=== PATIENT | male | born 1995 | race Caucasian/White ===

== ENCOUNTER 2020-08-28 00:46 | Emergency (ER) | payer OTHER, SELFPAY ==
[2020-08-28 00:48] VITALS: BP 131/80; PULSE 61; RESP 12; TEMP 36.8; O2SAT 99; BMI 19.5
--- NOTE | 2020-08-28 00:57 | EKG12_ITS ---
Test Reason : CP Blood Pressure : / mmHG Vent. Rate : 062 BPM Atrial Rate : 062 BPM P-R Int : 162 ms QRS Dur : 102 ms QT Int : 438 ms P-R-T Axes : 074 064 055 degrees QTc Int : 444 ms Normal sinus rhythm Nonspecific T wave abnormality Abnormal ECG Confirmed by KIMMY PENA, STEPHEN ([id number]), video tape editor CLARENCE MCCAULEY ([id number]) on 08/31/2020 10:25:22 AM Referred By: HORACIO Confirmed By:STEPHEN ONEAL MD
[2020-08-28 01:08] LABS: Absolute Lymphocyte Count 2.19 X10^3/uL (0.83-4.51); Absolute Neutrophil Count 6.6 X10^3/uL (2.0-7.7); Basophil# 0.04 X10^3/uL; Basophil% 0.4 % (0-1); Hematocrit 45.4 % (40-54); Hemoglobin 15.3 g/dL (13.0-16.5); Lymphocyte # 2.19 X10^3/ul (0.83-4.51); Lymphocyte % 22.8 % (19-41); Mean Corp Hgb Conc 33.7 g/dL (32-36); Mean Corpuscular Hgb 29.7 pg (27.0-32.0); Mean Platelet Vol. 10.7 fl (6.2-12.0); Monocyte% 6.3 % (0-10); NRBC Flagged by Analyzer 0 % (0-5); Neutrophil # 6.63 X10^3/uL (2.7-7.7); Neutrophil % 69.2 % (47-70); Platelet Count 127 K/mm3 (150-450); RBC Distribution Width SD 39.3 fl (35.1-43.9); Red Blood Count 5.16 M/mm3 (4.6-6.2); White Blood Count 9.6 K/mm3 (4.4-11.0)
--- NOTE | 2020-08-28 01:12 | RAD_ITS ---
STUDY: X-RAY CHEST REASON FOR EXAM: Male, 24 years old. chest pain TECHNIQUE: Single AP portable view of the chest. COMPARISON: None. FINDINGS: The lungs are clear and expanded. There is no demonstrated pleural abnormality. Normal size heart. Normal mediastinum and ronald. Normal visualized pulmonary arteries. Normal visualized aortic arch and descending thoracic aorta. Normal visualized thoracic spine. Normal visualized ribs, clavicles, and shoulders. There is no demonstrated abnormality of the visualized soft tissue structures of the upper abdomen. RAD/Chest 1 View (Portable) IMPRESSION: Normal x-ray examination of the chest. Electronically Signed: Francesco Baron DO at 1:30 EDT Tel , Service support ,
--- NOTE | 2020-08-28 01:16 | ED.VIS.CHEST ---
HPI History of Present Illness Chief Complaint: Chest Pain Narrative Narrative: 24-year-old male presenting with chest pain. States that his left lower chest wall. Earlier at about 830 yesterday evening he started to have the pain which felt like it was all over his chest. Patient currently only has left lower chest wall pain. He states he had shortness of breath issues for the last 6 months. He states that the chest pain issue has been for the last 6 years. He distantly saw physicians for this but his father states that he has not established with a physician locally. His father and he state that he did go to [place] about 3 weeks ago to a specialist named Dr. Montenegro. They do not know his specialty. They state that he checked him out with an EKG and blood work and stated that he had an enlarged heart. There was no chest x-ray or echocardiogram done. Patient denies fever or chills. He denies change in taste or smell. He denies leg swelling or leg pains. He does state that he had nausea and vomiting today. Patient did state that he was diagnosed with Gilbert syndrome from Dr. Montenegro 3 weeks ago. He has a history of elevated LFTs but this was his first diagnosis of this. [facility] Medical History Enlarged heart Gilbert syndrome Home Medications NK 08/28/20 [History Last Taken Unknown] Allergy/AdvReac Type Severity Reaction Status Date / Time No Known Allergies Allergy Verified 08/28/20 00:47 Surgical History Hx of appendectomy Social History Smoking Status: Never smoker ROS ROS ED Constitutional Constitutional ED: Denies chills or fever(s) Eyes Eyes: Denies blurry vision or change in vision ENT ENT ED: Denies rhinorrhea or sore throat Cardiovascular Cardiovascular: Reports chest pain and racing heartbeat Respiratory/Chest Respiratory/Chest: Reports dyspnea; Denies cough or sputum Gastrointestinal Gastrointestinal: Reports nausea and vomiting; Denies abdominal pain Genitourinary Genitourinary ED: Denies dysuria or hematuria Musculoskeletal Musculoskeletal: Denies arthralgias or myalgias Integumentary Denies abscess or rash Neurologic Neurologic: Denies headache(s) or paresthesias Psychiatric Psychiatric: Denies anxiety or depression EXAM Physical Exam Const Vital Signs: 08/28/20 00:48 08/28/20 00:52 08/28/20 00:59 Temperature 98.3 F Temperature Source Oral Pulse Rate 61 Respiratory Rate 12 Respiratory Effort Normal Respiratory Pattern Normal Blood Pressure 131/80 H Blood Pressure Mean 97 Pulse Ox 99 Oxygen Delivery Method Room Air Room Air 08/28/20 01:56 08/28/20 02:49 Temperature Temperature Source Pulse Rate 68 62 Respiratory Rate 12 10 L Respiratory Effort Respiratory Pattern Blood Pressure 133/80 H 132/64 H Blood Pressure Mean 97 86 Pulse Ox 97 97 Oxygen Delivery Method Room Air Room Air Positive well developed General Appearance ED: well developed and NAD; Negative for pallor HEENT normocephalic and atraumatic Eyes PERRL and EOMs intact bilaterally General Eye ED: Negative for scleral icterus Chest Wall inspection of chest normal and palpation of chest normal Resp normal respiratory effort and clear to auscultation bilaterally Effort and Inspection: respiratory distress Cardio regular rate and regular rhythm GI normal to inspection, nondistended, normoactive bowel sounds Extremity normal to inspection General Extremety ED: Negative for edema or tenderness General Extremity: Negative for edema Neuro oriented x3, CN's II-XII intact bilaterally and no sensory deficits noted Sensorium / Orientation: awake and alert Motor Exam: strength 5/5 throughout Psych mental status grossly normal Skin no rashes or lesions noted and no wounds General Skin Exam: Negative for jaundice or pallor Heart Score History: Slightly/Non-Suspicious ECG: Normal Age: </= 45 years Risk Factors: No Risk Factors Score: 0 MDM MDM MDM Narrative Medical decision making narrative: Patient presenting with chest pain and shortness of breath which has been an issue for about 6 years. It has been worsening over the last 6 months. Patient states that at 830 last evening he started to have worsening pain which he describes as chest pressure all over his chest and now it is focally on the left lower chest wall. It is nontender to palpation. EKG shows a sinus rhythm at [address] elevation or depression on my interpretation. There are no dysrhythmias either. Patient's lab work-up thus far is unremarkable with exception of his bilirubin being elevated at 2.6 and his direct albumin 0.31. Patient states he has a long history of this. Chest x-ray on my interpretation shows no acute cardiopulmonary process and radiologist does agree. Patient's initial troponin is 4.5. Will check delta troponin. Patient was reevaluated and is currently pain-free and resting. Patient and father had questions about why heart rate changes pill up and down. Patient asked why his heart rate went up to 101 when he ambulates to the bathroom and it is lower now. I did explain this to him. Patient's heart rate is in the 60s while resting. Patient had second troponin which was also similar at 4.6. Patient counseled that this is likely not a cardiac etiology. Patient is PERC negative. Patient will discharge home in stable condition. Impression: 1. Chest pain Lab Data Labs: Laboratory Results - last 24 hr 08/28/20 08/28/20 08/28/20 00:47 00:47 00:47 WBC 9.6 RBC 5.16 Hgb 15.3 Hct 45.4 MCV 88.0 MCH 29.7 MCHC 33.7 RDW Std Deviation 39.3 RDW Coeff of Sean 12.0 Plt Count 127 L MPV 10.7 Immature Gran % (Auto) 0.300 Neut % (Auto) 69.2 Lymph % (Auto) 22.8 Hitchcock % (Auto) 6.3 Eos % (Auto) 1.0 Baso % (Auto) 0.4 Absolute Neuts (auto) 6.6 Absolute Lymphs (auto) 2.19 Nucleated RBC % 0 Sodium 140 Potassium 3.4 L Chloride 105 Carbon Dioxide 28.0 Anion Gap 7 BUN 16 Creatinine 0.86 Estim Creat Clear Calc 114.53 Est GFR (MDRD) Af Amer 143 Est GFR (MDRD) Non-Af 118 BUN/Creatinine Ratio 18.7 Glucose 115 H Calcium 9.5 Total Bilirubin 2.60 H Direct Bilirubin 0.31 H AST 14 L ALT 28 Alkaline Phosphatase 75 Troponin I High Sens 4.5 Total Protein 7.6 Albumin 4.7 Globulin 2.9 08/28/20 02:50 WBC RBC Hgb Hct MCV MCH MCHC RDW Std Deviation RDW Coeff of Sean Plt Count MPV Immature Gran % (Auto) Neut % (Auto) Lymph % (Auto) Hitchcock % (Auto) Eos % (Auto) Baso % (Auto) Absolute Neuts (auto) Absolute Lymphs (auto) Nucleated RBC % Sodium Potassium Chloride Carbon Dioxide Anion Gap BUN Creatinine Estim Creat Clear Calc Est GFR (MDRD) Af Amer Est GFR (MDRD) Non-Af BUN/Creatinine Ratio Glucose Calcium Total Bilirubin Direct Bilirubin AST ALT Alkaline Phosphatase Troponin I High Sens 4.6 Total Protein Albumin Globulin Radiography Diagnostic Testing: Radiology Impression Chest X-Ray 08/28/20 01:12 IMPRESSION: Normal x-ray examination of the chest. Electronically Signed: Francesco Baron DO at 1:30 EDT Tel , Service support , Discharge Plan Triage Chief Complaint: Chest Pain ED Provider: Rudy Christiansen Dx/Rx/DC Orders Instructions: ED Chest Pain, Noncardiac Prescriptions: No Action NK RF: 0 Primary Care Provider: Care Physician,No Primary Referrals: Duncan Ruano MD [STAFF PHYSICIAN] - As soon as possible Care Physician,No Primary [Primary Care Provider] - Disposition Disposition: Home, Self Care
[2020-08-28 01:20] LABS: Anion Gap 7 (5-15); BUN 16 mg/dL (7-18); BUN/Creat Ratio 18.7 RATIO (10-20); Calcium,Total 9.5 mg/dL (8.5-10.1); Chloride 105 mmol/L (98-107); Creatinine, Serum 0.86 mg/dL (0.70-1.30); EST Glomerular Filtration Rate 118 mL/min (>60); Est Glom Filt Rate - Afr Amer 143 mL/min (>60); Estimated Creatinine Clearance 114.53 ml/min; Glucose 115 mg/dL (74-106); Potassium 3.4 mmol/L (3.5-5.1); Sodium Level 140 mmol/L (136-145); Troponin-I HS 4.5 pg/mL (3.0-78.5)
[2020-08-28 01:45] LABS: AST(SGOT) 14 U/L (15-37); Alanine Aminotransfer ALT/SGPT 28 U/L (16-61); Albumin, Serum 4.7 g/dL (3.2-5.0); Alkaline Phosphatase 75 U/L (45-117); Bilirubin, Direct 0.31 mg/dL (0.00-0.30); Globulin 2.9 g/dL (2.2-4.2); Protein, Total 7.6 g/dL (6.4-8.2)
[2020-08-28] MEDS: Ondansetron 4 MG/2 ML Vial IV (01:49)
[2020-08-28] MEDS: Morphine 4 MG/ML Syringe IV (01:49)
[2020-08-28 01:56] VITALS: BP 133/80; PULSE 68; RESP 12; O2SAT 97
[2020-08-28 02:49] VITALS: BP 132/64; PULSE 62; RESP 10; O2SAT 97
[2020-08-28 04:01] LABS: Troponin-I HS 4.6 pg/mL (3.0-78.5)
--- NOTE | 2020-08-28 05:05 | EKG12_ITS ---
Test Reason : REPEAT Blood Pressure : / mmHG Vent. Rate : 067 BPM Atrial Rate : 067 BPM P-R Int : 150 ms QRS Dur : 096 ms QT Int : 404 ms P-R-T Axes : 073 063 046 degrees QTc Int : 426 ms Normal sinus rhythm Nonspecific T wave abnormality Confirmed by KIMMY PENA, STEPHEN ([id number]), rewrite editor CLARENCE MCCAULEY ([id number]) on 08/31/2020 10:25:05 AM Referred By: HORACIO Confirmed By:STEPHEN ONEAL MD
[2020-08-28 05:26] VITALS: BP 117/72
== END 2020-08-28 05:27 | disposition home or self-care (01) ==
PROVIDERS: Emergency Provider Student in an Organized Health Care Education/Training Program
DX: R07.89 Other chest pain (principal); E80.4 Gilbert syndrome
CPT/HCPCS: 71045; 80048; 80076; 84484; 85025; 93005; 96374; 96375; 99285; A4216; J2405